=== PATIENT | male | born 1955 | race Caucasian/White ===

== ENCOUNTER 2021-01-02 12:46 | Emergency (ER) | payer OTHER, MEDICAID ==
[~2021-01-02] VITALS: Ht 175.3 cm; Wt 104.3 kg
[2021-01-02 13:04] VITALS: BP_SYST 130
--- NOTE | 2021-01-02 13:04 | NUR ---
PT TO REMAIN IN THE ER LOBBY UNTIL ER BED BECOMES AVAILABLE.
--- NOTE | 2021-01-02 13:10 | NUR ---
PT AAO AND AMBULATORY REPORTING THAT HE WOKE UP WITH RIGHT EYE PAIN YESTERDAY AND TODAY VISION IS BLURRED. PT REPORTS THAT HE HAS PHOTOSENSATIVITY AND EYE IS NOTED RED. PT REPORTS PAIN 2/10 ON PAIN SCALE.
--- NOTE | 2021-01-02 14:30 | NUR ---
PT TO [facility] FOR EVALUATION.
--- NOTE | 2021-01-02 14:50 | NUR ---
Dr. Panda at bedside to assess.
--- NOTE | 2021-01-02 15:32 | NUR ---
Dr. Panda at bedside for eye exam
[2021-01-02] MEDS ORDERED: OFLO5DRO6 LEFT EYE (15:50)
[2021-01-02] MEDS ORDERED: KETO5DRO85 LEFT EYE (15:50)
[2021-01-02] MEDS ORDERED: ERYEYE LEFT EYE (15:50)
--- NOTE | 2021-01-02 16:05 | NUR ---
Patient given written and verbal discharge instructions and verbalizes understanding. ER Dr. Panda discussed with patient the results and treatment provided. Patient in stable condition. ID arm band removed. Rx of erythromycin, ketorlac, and Oflaxin given. Patient educated on pain management and to follow up with PMD. Pain Scale 0. Opportunity for questions provided and answered. Medication side effect fact sheet provided.
[2021-01-02 16:07] VITALS: BP_SYST 122
== END 2021-01-02 16:05 | disposition home or self-care (01) ==
LOC: SED 12:46
DX: S05.01XA Injury of conjunctiva and corneal abrasion without foreign body, right eye, initial encounter (principal); Z88.0 Allergy status to penicillin; Z79.899 Other long term (current) drug therapy; X58.XXXA Exposure to other specified factors, initial encounter; Y93.89 Activity, other specified; Y92.89 Other specified places as the place of occurrence of the external cause; Y99.8 Other external cause status
CPT/HCPCS: 99283